=== PATIENT | male | born 1985 | race Caucasian/White ===

== ENCOUNTER → 2021-07-12 11:45 | Outpatient (CLI) | payer MEDICARE, BC, SELFPAY ==
[2021-07-12 12:23] LABS: Basophils # 0.1 K/mm3 (0-0.2); Basophils % 1.1 % (0.1-2.0); Eosinophils # 0.3 K/mm3 (0.0-0.4); Hematocrit 43.8 % (42.0-52.0); Hemoglobin 14.4 g/dL (14.1-18.0); Lymphocytes # 1.6 K/mm3 (0.7-4.5); Lymphocytes % 23.6 % (10-50); Mean Corpuscular HGB Conc 32.8 g/dL (31.8-35.4); Mean Corpuscular Hemoglobin 26.9 pg (27.0-31.2); Mean Platelet Volume 7.3 fl (7.4-10.4); Monocytes # 0.4 K/mm3 (0.1-1.0); Monocytes % 5.6 % (1.7-9.3); Neutrophils # 4.3 K/mm3 (1.8-7.8); Neutrophils % 64.6 % (37.0-80.0); Platelet Count 279 K/mm3 (142-424); Red Blood Count 5.34 M/mm3 (4.60-6.20); Red Cell Distribution Width 13.6 % (11.5-17.5); White Blood Count 6.7 K/mm3 (4.8-10.8)
== END ==
PROVIDERS: Visit Provider Emergency Medicine
DX: R53.83 Other fatigue (principal)
CPT/HCPCS: 36415; 85025

== ENCOUNTER 2021-10-05 17:43 | Emergency (ER) | payer MEDICARE, BC, SELFPAY ==
[2021-10-05 17:44] VITALS: BP 120/63; PULSE 88; RESP 16; TEMP 36.9; O2SAT 98; BMI 21.2
[2021-10-05 19:10] LABS: Basophils # 0.1 K/mm3 (0-0.2); Basophils % 1.4 % (0.1-2.0); Eosinophils # 0.4 K/mm3 (0.0-0.4); Eosinophils % 5.5 % (0.1-12.0); Hematocrit 41.8 % (42.0-52.0); Lymphocytes # 1.3 K/mm3 (0.7-4.5); Mean Corpuscular HGB Conc 33.4 g/dL (31.8-35.4); Mean Corpuscular Hemoglobin 27.6 pg (27.0-31.2); Mean Corpuscular Volume 82.6 fl (80-94); Monocytes # 0.3 K/mm3 (0.1-1.0); Monocytes % 4.9 % (1.7-9.3); Neutrophils # 4.6 K/mm3 (1.8-7.8); Platelet Count 298 K/mm3 (142-424); Red Blood Count 5.06 M/mm3 (4.60-6.20); Red Cell Distribution Width 13.8 % (11.5-17.5); White Blood Count 6.6 K/mm3 (4.8-10.8)
[2021-10-05 19:19] LABS: Alanine Aminotransferase 31 U/L (12-78); Albumin/Globulin Ratio 1.6 (1.1-1.8); Alkaline Phosphatase 75 U/L (38-126); Anion Gap 17.5 mEq/L (5-15); Aspartate Amino Transferase 30 U/L (17-59); Bilirubin,Total 0.5 mg/dl (0.2-1.3); Blood Urea Nitrogen 14 mg/dl (9-20); Calcium 9.5 mg/dl (8.4-10.2); Carbon Dioxide 22 mmol/L (22.0-30.0); Chloride 103 mmol/L (98-107); Creatinine Clearance Estimated 116 mL/min (50-200); Estimated Glomerular Filt Rate 110 ml/min (>60); GFR (African American) 133 ML/MIN (>60); Globulin 3.1 g/dL (1.3-3.2); Glucose 197 mg/dl (74-100); Potassium 3.5 mmoL/L (3.5-5.1); Sodium 139 mmol/L (136-145); Total Protein,Serum 8.1 g/dl (6.3-8.2)
[2021-10-05 19:20] LABS: Acetaminophen < 10 ug/ml (10-30); Salicylate < 1.0 mg/dL (2.0-20.0)
--- NOTE | 2021-10-05 19:30 | HMH.EDPSYCH ---
ED Disposition Clinical Impression: Chronic schizophrenia Disposition: Home, Self-Care Condition on Discharge: Good Instructions: DI for Psychosis Additional Instructions: see pcp for follow up Referrals: Provider,Gabriel, [Primary Care Provider] - - Critical Care Critical Care Time: No Attestation: On 10/05/21, the high probability of a clinically significant, sudden or life threatening deterioration of the following system(s) required my full and direct attention, intervention and personal management. The time I documented below is in addition to time spent performing reported procedures but includes the following listed in this critical care notation. Medical Decision Making - Medical Records Medical records reviewed: Yes: I reviewed the patient's medical records. - Shon Inquiry Pt receiving controlled substance: No Vital Signs: 10/05/21 17:44 Temperature 98.4 F Temperature Source Oral Pulse Rate [Radial] 88 Respiratory Rate 16 Blood Pressure [Right Arm] 120/63 Blood Pressure Mean [Right Arm] 82 Blood Pressure Position [Right Arm] Sitting 02 Sat by Pulse Oximetry 98 Oxygen Delivery Method Room Air - Lab Data Lab results reviewed: Yes: I reviewed the patient's lab results. Lab Results 10/05/21 18:30: WBC 6.6, RBC 5.06, Hgb 14.0 L, Hct 41.8 L, MCV 82.6, MCH 27.6, MCHC 33.4, RDW 13.8, Plt Count 298, MPV 8.0, Neut % (Auto) 69.0, Lymph % (Auto) 19.0, [place] % (Auto) 4.9, Eos % (Auto) 5.5, Baso % (Auto) 1.4, Neut # (Auto) 4.6, Lymph # (Auto) 1.3, [place] # (Auto) 0.3, Eos # (Auto) 0.4, Baso # (Auto) 0.1 10/05/21 18:30: Sodium 139, Potassium 3.5, Chloride 103, Carbon Dioxide 22, Anion Gap 17.5 H, BUN 14, Creatinine 0.80, Estimated Creat Clear 116, Estimated GFR 110, Est GFR ( Amer) 133, Glucose 197 H, Calcium 9.5, Total Bilirubin 0.5, AST 30, ALT 31, Alkaline Phosphatase 75, Total Protein 8.1, Albumin 5.0, Globulin 3.1, Albumin/Globulin Ratio 1.6, Salicylates < 1.0 L, Acetaminophen < 10 L Result diagrams: 10/05/21 18:30 10/05/21 18:30 Orders (Tests/Meds): ORDERS Category Date Time Status Drug Screen,Urine Stat Lab 10/05/21 18:56 Ordered Urinalysis-Acute [Urinalysis and Microscopic] Stat Lab 10/05/21 18:56 Ordered Medical Decision Narrative: stable exam witrh chronic pschy issues Psych HPI - General Chief Complaint: Psychiatric Symptoms Stated Complaint: CONFUSSED fOUND ON STREET Time Seen by Provider: 10/05/21 19:30 Mode of Arrival: Ambulatory Source of Information: Patient, Medical Record Limitations: No Limitations Description of Symptoms (Recalled from ER Triage Doc. by RN): to ed per pvt car pt resident [facility], pt was brought to ed by police, states they found him laying on ground, pt was going thru neighborhoods knocking on doors. called [facility] they were unaware pt had left [place]. pt denies any c/o. [facility] told ed nurse to have pt checked medically while he is here . - History of Present Illness HPI Narrative: from local residential wandering in town - no injury or other c/o reported MD complaint: altered mental status Onset (ago): unknown Duration: changing over time History of same: Yes Exacerbating factors: none Context: other (pschy) Associated psychiatric symptoms: depression Associated symptoms: denies other symptoms - Related Data Allergies Allergy/AdvReac Type Severity Reaction Status Date / Time Unable to Assess Allergy Unverified 07/12/21 11:03 [facility] History - Hepatitis A Screen Drug use history?: No High risk sexual behaviors?: No History of sexually transmitted infection?: No Currently employed?: No Childcare worker?: No Do you have indoor plumbing?: Yes Do you have electricity?: Yes Attestation statement:: This patient has been screened for Hepatitis A risk factors. I have reviewed the patient's past medical history: Yes ROS Obtained: Yes All systems reviewed & no additional complaints - Constitutional Constitutio
[2021-10-05 19:50] VITALS: BP 109/85; PULSE 76; RESP 18; TEMP 36.9; O2SAT 98
== END 2021-10-05 19:50 | disposition home or self-care (01) ==
PROVIDERS: Emergency Medicine; Emergency Provider Emergency Medicine
DX: F20.9 Schizophrenia, unspecified (principal); R41.82 Altered mental status, unspecified; Z79.899 Other long term (current) drug therapy
CPT/HCPCS: 80053; 80329; 85025; 99282

== ENCOUNTER 2021-12-11 17:59 | Emergency (ER) | payer MEDICARE, BC, SELFPAY ==
[2021-12-11 17:57] VITALS: BP 143/93; PULSE 92; RESP 18; TEMP 37.3; O2SAT 97; BMI 21.7
[2021-12-11 18:37] VITALS: BP 132/95; PULSE 109; O2SAT 98
--- NOTE | 2021-12-11 18:40 | PC.NURSE ---
ED MD at
--- NOTE | 2021-12-11 18:46 | PC.NURSE ---
Attempting to call [facility] for pt records. No answer
--- NOTE | 2021-12-11 18:47 | HMH.EDGENADL ---
ED Disposition Condition on Discharge: Fair - Critical Care Critical Care Time: No <Jai Mendoza - Last Filed: 12/11/21 20:17> <Wei Stewart - Last Filed: 12/11/21 23:00> Clinical Impression: Acute psychosis Disposition: Xfer Psychiatric Hosp Instructions: DI for Laceration Repair Referrals: Provider,Referral, [Primary Care Provider] - Attestation: On 12/11/21, the high probability of a clinically significant, sudden or life threatening deterioration of the following system(s) required my full and direct attention, intervention and personal management. The time I documented below is in addition to time spent performing reported procedures but includes the following listed in this critical care notation. Medical Decision Making - Shon Inquiry Pt receiving controlled substance: No <Jai Mendoza - Last Filed: 12/11/21 20:17> - Lab Data Lab results reviewed: Yes: I reviewed the patient's lab results. Result diagrams: 12/11/21 20:50 12/11/21 20:50 - Radiology Data #1 Image(s): Chest Image Reviewed: Yes I have reviewed radiologist's interpretation Preliminary Findings: Normal/NAD - ECG Data Tracing #1 Normal Sinus Rhythm: Yes Ischemic changes: non-specific ST-T wave changes <Wei Stewart - Last Filed: 12/11/21 23:00> Vital Signs: 12/11/21 17:57 12/11/21 18:37 Temperature 99.2 F Temperature Source Oral Pulse Rate 109 H Pulse Rate [Right Radial] 92 H Respiratory Rate 18 Blood Pressure 132/95 H Blood Pressure [Right Arm] 143/93 H Blood Pressure Mean [Right Arm] 109 Blood Pressure Source [Right Arm] Automatic Cuff Blood Pressure Position [Right Arm] Sitting 02 Sat by Pulse Oximetry 97 98 Oxygen Delivery Method Room Air Room Air - Lab Data Lab Results 12/11/21 20:50: WBC 6.4, RBC 4.88, Hgb 13.7 L, Hct 41.9 L, MCV 85.9, MCH 28.0, MCHC 32.6, RDW 13.9, Plt Count 303, MPV 7.7, Neut % (Auto) 71.4, Lymph % (Auto) 19.9, [place] % (Auto) 4.4, Eos % (Auto) 3.4, Baso % (Auto) 1.0, Neut # (Auto) 4.5, Lymph # (Auto) 1.3, [place] # (Auto) 0.3, Eos # (Auto) 0.2, Baso # (Auto) 0.1 12/11/21 20:50: Sodium 137, Potassium 3.9, Chloride 103, Carbon Dioxide 25, Anion Gap 12.9, BUN 10, Creatinine 0.70, Estimated Creat Clear 151, Estimated GFR 128, Est GFR ( Amer) 155, Glucose 215 H, Calcium 9.6, Total Bilirubin 0.6, AST 30, ALT 27, Alkaline Phosphatase 78, Total Protein 7.7, Albumin 4.8, Globulin 2.9, Albumin/Globulin Ratio 1.7, Salicylates < 1.0 L, Acetaminophen < 10 L 12/11/21 20:50: SARS-CoV-2 (PCR) Not detected, Influenza A Untype (PCR) Not detected, Influenza Type B (PCR) Not detected 12/11/21 20:50: Plasma/Serum Alcohol < 10 Orders (Tests/Meds): ED MEDICATIONS Discontinued Medications Generic Name Dose Route Start Last Admin Trade Name Freq PRN Reason Stop Dose Admin Olanzapine 10 mg 12/11/21 19:07 Olanzapine 10 Mg Vial IM Q2HP PRN Agitation Olanzapine 10 mg 12/11/21 19:45 12/11/21 19:49 Olanzapine 10 Mg Vial IM 12/11/21 19:46 10 mg ONCE ONE Administration ORDERS Category Date Time Status Drug Screen,Urine Stat Lab 12/11/21 20:06 Ordered Urinalysis and Microscopic Stat Lab 12/11/21 20:05 Ordered Medical Decision Narrative: Per [facility] staff, patient has not had Clozapine this evening, due at 9 PM. 8:00 PM: At shift change, I have discussed the patient with the oncoming physician, who will assume care of the patient at this time. I have discussed all clinical information including history, physical and diagnostic study results. Preliminary diagnoses based on information available at this point have been recorded by me. (Jai Mendoza) pt with acute psychosis with delusion - stable physical exam and labs - (Wei Stewart) General Adult HPI - General Mode of Arrival: EMS Limitations: Psychological limitations Description of Symptoms (Recalled from ER Triage Doc. by RN): Pt to ED per EMS from [facility]
[2021-12-11 19:30] VITALS: BP 134/90; PULSE 89; O2SAT 97
--- NOTE | 2021-12-11 20:05 | XR_ITS ---
PROCEDURE INFORMATION: Exam: XR Chest Exam date and time: 12/11/2021 8:26 PM Age: 36 years old Clinical indication: Screening exam; Other screening; Additional info: Psych medical clearance TECHNIQUE: Imaging protocol: XR of the chest. Views: 1 view. COMPARISON: No relevant prior studies available. FINDINGS: Lungs: No consolidation. Pleural spaces: No pneumothorax. Heart/Mediastinum: No cardiomegaly. Bones/joints: No acute abnormality. IMPRESSION: No acute findings.
[2021-12-11 20:30] VITALS: BP 138/89
--- NOTE | 2021-12-11 20:46 | ECG_ITS ---
APPROVED REPORT Exam: Resting ECG HR:85 bpm ECG Measurements Heart Rate 85 AXES RI 140 P 40 QRSd 109 QRS 122 QT 383 T 40 QTc 425 Conclusion SINUS RHYTHM POSSIBLE RIGHT VENTRICULAR HYPERTROPHY [SOME/ALL OF: PROMINENT R IN V1, LATE TRANSITION, RAD, EMILIANO, SSS] MODERATE T-WAVE ABNORMALITY, CONSIDER ANTERIOR ISCHEMIA [-0.1+ mV T-WAVE IN V3/V4] ABNORMAL ECG UNCONFIRMED REPORT Electronically signed by : Yoel Kilpatrick MD 12/12/2021 17:34:18
[2021-12-11 20:59] LABS: Coronavirus 19, PCR Not Detected (NotDetected); Influenza A, PCR Not Detected (NotDetected); Influenza B, PCR Not Detected (NotDetected)
[2021-12-11 21:05] LABS: Basophils # 0.1 K/mm3 (0-0.2); Eosinophils # 0.2 K/mm3 (0.0-0.4); Eosinophils % 3.4 % (0.1-12.0); Hematocrit 41.9 % (42.0-52.0); Hemoglobin 13.7 g/dL (14.1-18.0); Lymphocytes # 1.3 K/mm3 (0.7-4.5); Lymphocytes % 19.9 % (10-50); Mean Corpuscular HGB Conc 32.6 g/dL (31.8-35.4); Mean Corpuscular Volume 85.9 fl (80-94); Mean Platelet Volume 7.7 fl (7.4-10.4); Monocytes # 0.3 K/mm3 (0.1-1.0); Monocytes % 4.4 % (1.7-9.3); Neutrophils # 4.5 K/mm3 (1.8-7.8); Neutrophils % 71.4 % (37.0-80.0); Platelet Count 303 K/mm3 (142-424); Red Blood Count 4.88 M/mm3 (4.60-6.20); Red Cell Distribution Width 13.9 % (11.5-17.5); White Blood Count 6.4 K/mm3 (4.8-10.8)
[2021-12-11 21:14] LABS: Alanine Aminotransferase 27 U/L (12-78); Albumin Level 4.8 g/dl (3.5-5.0); Albumin/Globulin Ratio 1.7 (1.1-1.8); Alkaline Phosphatase 78 U/L (38-126); Anion Gap 12.9 mEq/L (5-15); Aspartate Amino Transferase 30 U/L (17-59); Bilirubin,Total 0.6 mg/dl (0.2-1.3); Blood Urea Nitrogen 10 mg/dl (9-20); Calcium 9.6 mg/dl (8.4-10.2); Carbon Dioxide 25 mmol/L (22.0-30.0); Chloride 103 mmol/L (98-107); Creatinine Clearance Estimated 151 mL/min (50-200); Estimated Glomerular Filt Rate 128 ml/min (>60); GFR (African American) 155 ML/MIN (>60); Globulin 2.9 g/dL (1.3-3.2); Glucose 215 mg/dl (74-100); Potassium 3.9 mmoL/L (3.5-5.1); Sodium 137 mmol/L (136-145); Total Protein,Serum 7.7 g/dl (6.3-8.2)
[2021-12-11 21:28] LABS: Acetaminophen < 10 ug/ml (10-30); Salicylate < 1.0 mg/dL (2.0-20.0)
[2021-12-11 21:29] LABS: Ethyl Alcohol < 10 mg/dl (0-10)
[2021-12-11 21:30] VITALS: BP 134/90; PULSE 81; O2SAT 99
--- NOTE | 2021-12-11 21:50 | PC.NURSE ---
Petition paper work notarized by Romairo Alberts
--- NOTE | 2021-12-11 22:10 | PC.NURSE ---
Juanition paper work sent to Judge Hughes at this time.
--- NOTE | 2021-12-11 23:04 | PC.NURSE ---
Dispatch notified that pt is ready for transport
[2021-12-11 23:09] VITALS: BP 132/92; PULSE 85; RESP 16; TEMP 36.7; O2SAT 99
== END 2021-12-11 23:25 ==
PROVIDERS: Emergency Provider Emergency Medicine
DX: F22 Delusional disorders (principal); F20.9 Schizophrenia, unspecified; S41.111A Laceration without foreign body of right upper arm, initial encounter; W45.8XXA Other foreign body or object entering through skin, initial encounter; Y92.199 Unspecified place in other specified residential institution as the place of occurrence of the external cause; Z79.899 Other long term (current) drug therapy
CPT/HCPCS: 71045; 80053; 80329; 85025; 93005; 96372; 99284; C9803; U0003; U0005